=== PATIENT | female | born 1960 | race Caucasian/White ===

== ENCOUNTER 2020-10-04 11:18 | Emergency (ER) | payer OTHER | END 2020-10-04 11:25 | disposition left against medical advice (07) | LOC: FER 11:18 | DX: R05 Cough (principal) | CPT/HCPCS: G2012-GT ==

== ENCOUNTER 2020-10-04 16:52 | Emergency (ER) | payer OTHER | END 2020-10-04 17:37 | disposition home or self-care (01) | LOC: JVIRT 16:52 | DX: Z11.52 Encounter for screening for COVID-19 (principal) | CPT/HCPCS: C9803; G2012-GT; U0003 ==

== ENCOUNTER 2020-10-08 13:31 | Inpatient (IN) | payer OTHER ==
[2020-10-08 13:45] VITALS: BMI 24.0
[2020-10-08] MEDS ORDERED: DEXAMETHASONE SOD PHOSPHATE 4 MG/1 ML VIAL IVPUSH ONE (13:49)
[2020-10-08] MEDS: SODIUM CHLORIDE 1,000 ML IV SCH (14:28)
[2020-10-08 15:07] LABS: BASO % 0.3 % (0-2.0); EOS % 0.8 % (0-4.5); HEMATOCRIT 30.5 % (32.4-45.2); HEMOGLOBIN 10.5 GM/dL (10.7-15.3); LYMPH % 16.2 % (8-40); MCH 32.4 pg (25.7-33.7); MCHC 34.4 g/dl (32.0-36.0); MEAN PLT VOLUME 7.3 fl (7.5-11.1); MONO % 11.5 % (3.8-10.2); NEUT % 71.2 % (42.8-82.8); PLATELET COUNT 275 K/MM3 (134-434); RBC 3.25 M/mm3 (3.60-5.2); WHITE BLOOD COUNT 7.5 K/mm3 (4.0-10.0)
[2020-10-08 15:41] LABS: CHLORIDE 106 mmol/L (98-107); POTASSIUM 3.7 mmol/L (3.5-5.1); SODIUM 138 mmol/L (136-145)
[2020-10-08 15:43] LABS: ALBUMIN 3.2 g/dl (3.4-5.0); ANION GAP 7 MMOL/L (8-16); BLOOD UREA NITROGEN 17.3 mg/dL (7-18); CALCIUM 9.1 mg/dL (8.5-10.1); CO2 25 mmol/L (21-32); GLUCOSE,RANDOM 119 mg/dL (74-106)
[2020-10-08 15:46] LABS: SGOT/AST 35 U/L (15-37); SGPT/ALT 63 U/L (13-61)
[2020-10-08 15:47] LABS: CREATININE 0.8 mg/dL (0.55-1.3)
[2020-10-08 15:48] LABS: BILIRUBIN,TOTAL 0.3 mg/dL (0.2-1); TOT PROT 6.9 g/dl (6.4-8.2)
[2020-10-08 15:49] LABS: ALK PHOS 67 U/L (45-117); ERYTHROCYTE SEDIMENTATION RATE 100 mm/hr (0-30)
[2020-10-08 15:50] LABS: LDH 226 U/L (84-246)
[2020-10-08 17:36] LABS: EPI CELLS 19 /uL (0-25.1); HYALINE CASTS 4 /uL (0-3.1); PH,URINE 5.5 (5.0-8.0); URINE APPEARANCE CLEAR; URINE BACTERIA 147 /uL (0-1359); URINE BILIRUBIN NEGATIVE (NEGATIVE); URINE COLOR YELLOW; URINE GLUCOSE (UA) NEGATIVE (NEGATIVE); URINE KETONE TRACE (NEGATIVE); URINE LEUK ESTERASE TRACE (NEGATIVE); URINE NITRITE NEGATIVE (NEGATIVE); URINE PROTEIN NEGATIVE (NEGATIVE); URINE RBC 7 /uL (0-23.9); URINE UROBILINOGEN 0.2 mg/dL (0.2-1.0); URINE WBC 9 /uL (0-25.8)
[2020-10-08 18:20] LABS: URINE CRYSTALS MANY /hpf
[2020-10-08] MEDS ORDERED: MELATONIN 5 MG TABLETS PO ONE (20:30)
[2020-10-08] MEDS ORDERED: MELATONIN 5 MG TABLETS ONE (21:26)
[2020-10-08] MEDS ORDERED: ASCORBIC ACID 500 MG TABLET (FP) ONE (21:26)
[2020-10-08] MEDS: ASCORBIC ACID 500 MG TABLET (FP) PO SCH (21:31)
[2020-10-08] MEDS ORDERED: guaiFENesin 200 MG/10 ML 10 ML UNIT-DOSE CUPS PO ONE (22:34)
[2020-10-08] MEDS ORDERED: traZODone HCL 100 MG TABLET (FP) PO PRN (22:50)
[2020-10-08] MEDS ORDERED: diazePAM 2 MG TABLET PO ONE (22:51)
[2020-10-08] MEDS ORDERED: diazePAM 2 MG TABLET PO PRN (22:55)
[2020-10-08] MEDS ORDERED: guaiFENesin/D-METHORPHAN HB 10 ML UNIT-DOSE CUPS ONE (23:15)
[2020-10-08] MEDS ORDERED: diazePAM 2 MG TABLET ONE (23:16)
[2020-10-09 07:22] LABS: BASO % 0.6 % (0-2.0); EOS % 2.1 % (0-4.5); HEMATOCRIT 28.4 % (32.4-45.2); LYMPH % 27.7 % (8-40); MCH 32.7 pg (25.7-33.7); MCHC 35.1 g/dl (32.0-36.0); MEAN CELL VOLUME 93.1 fl (80-96); MEAN PLT VOLUME 7.3 fl (7.5-11.1); MONO % 14.9 % (3.8-10.2); NEUT % 54.7 % (42.8-82.8); PLATELET COUNT 278 K/MM3 (134-434); RBC 3.05 M/mm3 (3.60-5.2); RDW 12.1 % (11.6-15.6); WHITE BLOOD COUNT 5.9 K/mm3 (4.0-10.0)
[2020-10-09 07:39] LABS: POTASSIUM 4.1 mmol/L (3.5-5.1)
[2020-10-09 07:41] LABS: CALCIUM 8.6 mg/dL (8.5-10.1)
[2020-10-09 07:42] LABS: ALBUMIN 2.8 g/dl (3.4-5.0); BLOOD UREA NITROGEN 10.5 mg/dL (7-18); MAGNESIUM 2.1 mg/dL (1.8-2.4)
[2020-10-09 07:45] LABS: CREATININE 0.7 mg/dL (0.55-1.3)
[2020-10-09 07:46] LABS: BILIRUBIN,TOTAL 0.3 mg/dL (0.2-1)
[2020-10-09 07:47] LABS: TOT PROT 5.9 g/dl (6.4-8.2)
[2020-10-09] MEDS ORDERED: ENOXAPARIN NA (PORCINE) 40 MG/0.4 ML DISP.SYRIN SQ SCH (10:00)
[2020-10-09] MEDS ORDERED: DEXAMETHASONE SOD PHOSPHATE 10 MG/1 ML VIAL ONE (10:33)
[2020-10-09] MEDS ORDERED: PANTOPRAZOLE 40 MG TABLET ONE (10:34)
[2020-10-09] MEDS ORDERED: ZINC SULFATE 220 MG CAPSULE (FP) ONE (10:34)
[2020-10-09] MEDS: ZINC SULFATE 220 MG CAPSULE (FP) PO SCH (11:00)
[2020-10-09] MEDS: DEXAMETHASONE SOD PHOSPHATE 4 MG/1 ML VIAL IVPUSH SCH (11:00)
[2020-10-09] MEDS: PANTOPRAZOLE 40 MG TABLET PO SCH (11:00)
[2020-10-09] MEDS: FLUoxetine HCL 20 MG CAPSULE PO SCH (11:01)
[2020-10-09] MEDS ORDERED: CHOLECALCIFEROL (VIT D3) 1,000 UNIT (25 MCG) TABLET ONE (11:02)
[2020-10-09] MEDS ORDERED: ASCORBIC ACID 500 MG TABLET (FP) ONE (11:02)
[2020-10-09] MEDS: CHOLECALCIFEROL (VIT D3) 1,000 UNIT (25 MCG) TABLET PO SCH (11:04)
[2020-10-09] MEDS: ASCORBIC ACID 500 MG TABLET (FP) PO SCH ×2 (11:04→21:42)
[2020-10-09] MEDS: SODIUM CHLORIDE 1,000 ML IV SCH (16:46)
[2020-10-09] MEDS ORDERED: MULTIVITAMINS (DAILY MVI) TABLET (FP) ONE (18:17)
[2020-10-09] MEDS ORDERED: THIAMINE HCL 100 MG TABLET (FP) ONE (18:17)
[2020-10-09] MEDS ORDERED: ALBUTEROL SO4 HFA INHALER IH ONE (18:17)
[2020-10-09] MEDS ORDERED: FOLIC ACID 1 MG TABLET (FP) ONE (18:17)
[2020-10-09] MEDS: MULTIVITAMINS (DAILY MVI) TABLET (FP) PO SCH (18:27)
[2020-10-09] MEDS: ALBUTEROL SO4 HFA INHALER IH SCH ×2 (18:27→21:42)
[2020-10-09] MEDS: FOLIC ACID 1 MG TABLET (FP) PO SCH (18:27)
[2020-10-09] MEDS: THIAMINE HCL 100 MG TABLET (FP) PO SCH (18:27)
[2020-10-09] MEDS: BUDESONIDE/FORMETEROL FUMARATE 160/4.5 mcg INHALER IH SCH (21:48)
[2020-10-10] MEDS ORDERED: PT OWN MED DRAWER 7, Y5N ONE (09:22)
[2020-10-10 09:44] LABS: BASO % 0.2 % (0-2.0); EOS % 0.1 % (0-4.5); HEMATOCRIT 29.1 % (32.4-45.2); HEMOGLOBIN 9.9 GM/dL (10.7-15.3); LYMPH % 17.5 % (8-40); MCH 32.4 pg (25.7-33.7); MCHC 34.2 g/dl (32.0-36.0); MEAN CELL VOLUME 94.8 fl (80-96); MEAN PLT VOLUME 7.5 fl (7.5-11.1); MONO % 9.3 % (3.8-10.2); NEUT % 72.9 % (42.8-82.8); PLATELET COUNT 309 K/MM3 (134-434); RBC 3.07 M/mm3 (3.60-5.2); RDW 12.2 % (11.6-15.6); WHITE BLOOD COUNT 7.1 K/mm3 (4.0-10.0)
[2020-10-10] MEDS: BUDESONIDE/FORMETEROL FUMARATE 160/4.5 mcg INHALER IH SCH (09:59)
[2020-10-10] MEDS: ALBUTEROL SO4 HFA INHALER IH SCH ×2 (10:00→12:10)
[2020-10-10] MEDS: PANTOPRAZOLE 40 MG TABLET PO SCH (10:02)
[2020-10-10] MEDS: ZINC SULFATE 220 MG CAPSULE (FP) PO SCH (10:02)
[2020-10-10] MEDS: FLUoxetine HCL 20 MG CAPSULE PO SCH (10:02)
[2020-10-10] MEDS: ASCORBIC ACID 500 MG TABLET (FP) PO SCH (10:02)
[2020-10-10] MEDS: CHOLECALCIFEROL (VIT D3) 1,000 UNIT (25 MCG) TABLET PO SCH (10:02)
[2020-10-10] MEDS: FOLIC ACID 1 MG TABLET (FP) PO SCH (10:02)
[2020-10-10] MEDS: MULTIVITAMINS (DAILY MVI) TABLET (FP) PO SCH (10:02)
[2020-10-10] MEDS: THIAMINE HCL 100 MG TABLET (FP) PO SCH (10:02)
[2020-10-10] MEDS: DEXAMETHASONE SOD PHOSPHATE 4 MG/1 ML VIAL IVPUSH SCH (10:03)
[2020-10-10 10:07] LABS: POTASSIUM 4.3 mmol/L (3.5-5.1)
[2020-10-10 10:27] LABS: CREATININE 0.6 mg/dL (0.55-1.3)
[2020-10-10 10:28] LABS: ALBUMIN 2.9 g/dl (3.4-5.0); BILIRUBIN,TOTAL 0.2 mg/dL (0.2-1)
[2020-10-10 10:29] LABS: TOT PROT 6.3 g/dl (6.4-8.2)
[2020-10-10 10:30] LABS: CALCIUM 8.9 mg/dL (8.5-10.1); PHOSPHOROUS 3.6 mg/dL (2.5-4.9)
[2020-10-10 10:31] LABS: MAGNESIUM 2.2 mg/dL (1.8-2.4)
[2020-10-10 14:14] VITALS: BP 129/76; PULSE 64; TEMP 98.1
[2020-10-10] MEDS: SODIUM CHLORIDE 1,000 ML IV SCH (15:10)
== END 2020-10-10 16:10 | disposition home or self-care (01) | DRG 177 ==
LOC: JER 13:31 → INTOOBSV 18:01 → JERBED 18:01 → J8W 10-09 20:08 → OBSVTOIN 10-10 10:51
PROVIDERS: ADMIT Hospitalist
DX: U07.1 COVID-19 (principal); J12.82 Pneumonia due to coronavirus disease 2019; J96.01 Acute respiratory failure with hypoxia; J44.1 Chronic obstructive pulmonary disease with (acute) exacerbation; D64.9 Anemia, unspecified; I27.20 Pulmonary hypertension, unspecified; F10.10 Alcohol abuse, uncomplicated; F41.8 Other specified anxiety disorders; Z72.89 Other problems related to lifestyle; E78.5 Hyperlipidemia, unspecified
CPT/HCPCS: 36415; 71045-TC-FY; 71250-TC; 80053; 81003; 82728; 83615; 83735; 84100; 84484; 85025; 85379; 85651; 86140; 87804; 93005; 93010; 99285-25; C9803; G0378; U0003

== ENCOUNTER 2021-06-04 14:30 | Emergency (ER) | payer OTHER ==
[2021-06-04 14:54] VITALS: BP 150/100; PULSE 98; TEMP 98; BMI 24.9
[2021-06-04] MEDS ORDERED: CLINDAMYCIN HCL 150 MG CAPSULE (FP) PO ONE (15:07)
[2021-06-04] MEDS ORDERED: CLINDAMYCIN HCL 150 MG CAPSULE (FP) ONE (15:11)
== END 2021-06-04 15:47 | disposition home or self-care (01) ==
LOC: FER 14:30
DX: S61.511A Laceration without foreign body of right wrist, initial encounter (principal); W19.XXXA Unspecified fall, initial encounter; Y92.9 Unspecified place or not applicable
CPT/HCPCS: 73110-TC-RT-FY; 99284-25

== ENCOUNTER 2021-08-27 10:52 | Emergency (ER) | payer OTHER ==
[2021-08-27 11:09] VITALS: BP 154/82; PULSE 94; TEMP 97.3; BMI 24.9
[2021-08-27] MEDS ORDERED: FOLIC ACID INJECTION - 1 MG, THIAMINE HCL 100 MG, MULTIVIT INJECTION ADULT 10 ML in SOD... IVPB ONE (11:47)
[2021-08-27 12:08] LABS: INR 1.01 (0.83-1.09); PROTHROMBIN TIME (PATIENT) 11.2 SEC (9.7-13.0)
[2021-08-27] MEDS ORDERED: THIAMINE HCL 200 MG/2 ML VIAL ONE (12:09)
[2021-08-27] MEDS ORDERED: MULTIVIT INJ. ADULT COMBO WITH VIT K 1 COMBO 10 ML VIAL IV ONE (12:10)
[2021-08-27] MEDS ORDERED: FOLIC ACID 5 MG/1 ML ONE (12:11)
[2021-08-27 12:14] LABS: ALBUMIN 4.8 g/dl (3.4-5.0); ALK PHOS 72 U/L (45-117); ANION GAP 15 MMOL/L (8-16); CALCIUM 9.7 mg/dl (8.5-10); CHLORIDE 102 mmol/L (98-107); CO2 18 mmol/L (21-32); CREATININE 1.9 mg/dl (0.55-1.3); GLUCOSE,RANDOM 108 mg/dl (74-106); MAGNESIUM 1.8 mg/dL (1.8-2.4); PHOSPHOROUS 4.6 mg/dl (2.5-4.9); SGOT/AST 53 U/L (15-37); SGPT/ALT 55 U/L (13-61); SODIUM 135 mmol/L (136-145); TOT PROT 7.9 g/dl (6.4-8.2)
[2021-08-27] MEDS ORDERED: SODIUM CHLORIDE 1,000 ML IV STA (12:37)
[2021-08-27 14:05] LABS: BASO % 0.3 % (0-2.0); EOS % 0.1 % (0-4.5); HEMATOCRIT 36.9 % (32.4-45.2); HEMOGLOBIN 12.6 GM/dL (10.7-15.3); LYMPH % 11.2 % (8-40); MCH 32.8 pg (25.7-33.7); MCHC 34.1 g/dl (32.0-36.0); MEAN CELL VOLUME 96.2 fl (80-96); MEAN PLT VOLUME 7.5 fl (7.5-11.1); MONO % 5.4 % (3.8-10.2); PLATELET COUNT 253 10^3/uL (134-434); RBC 3.84 M/mm3 (3.60-5.2); RDW 12.5 % (11.6-15.6); WHITE BLOOD COUNT 9.8 K/mm3 (4.0-10.0)
[2021-08-27 14:59] LABS: CALCIUM 8.5 mg/dl (8.5-10); CREATININE 1.4 mg/dl (0.55-1.3)
== END 2021-08-27 15:33 | disposition home or self-care (01) ==
LOC: FER 10:52
PROC: 3E033GC Introduction of Other Therapeutic Substance into Peripheral Vein, Percutaneous Approach (ICD-10-PCS; principal; 2021-08-27)
DX: S00.83XA Contusion of other part of head, initial encounter (principal); N17.9 Acute kidney failure, unspecified; E86.0 Dehydration; W06.XXXA Fall from bed, initial encounter
CPT/HCPCS: 36415; 70450-TC; 72125-TC; 80048; 80053; 80307; 83735; 84100; 85025; 85610; 99285-25